=== PATIENT | female | born 1990 | race Two or more races ===

== ENCOUNTER 2020-07-14 22:33 | Inpatient (IN) ==
[2020-07-15] MEDS ORDERED: ACETAMINOPHEN 500 MG TABLET PO STA (00:26)
[2020-07-15] MEDS ORDERED: ACETAMINOPHEN 500 MG TABLET ONE (00:30)
[2020-07-15 01:12] LABS: Basophils % 0.1 % (0.0-0.8); Hematocrit 41.2 VOL% (35.7-47.0); Hemoglobin 13.4 GM/DL (12.0-16.0); Immature Granulocytes % 0.5 %; Immature Granulocytes Absolute 0.11 #; Lymphocytes # 2.1 10*3/uL (1.4-4.0); Lymphocytes % 9.3 % (21.3-54.2); Mean Corpuscular HGB Conc 32.5 GM/DL (32-36); Mean Corpuscular Volume 82.7 FL (87-102); Mean Platelet Volume 10.7 FL (9.6-12.0); Monocytes % 8.9 % (1.7-12.7); Neutrophils % 81.2 % (38.7-73.9); Platelet Count 361 T/CUMM (130-400); Red Blood Count 4.98 MC/CUMM (3.8-5.5); Red Cell Distribution Width 13.1 % (9.3-17.3)
[2020-07-15] MEDS ORDERED: SODIUM CHLORIDE 0.9% 1,000 ML IV STA (01:31)
[2020-07-15] MEDS ORDERED: KETOROLAC 30 MG/1 ML VIAL IV STA (01:31)
[2020-07-15 01:36] LABS: Albumin 3.9 G/DL (3.4-5.0); Bilirubin,Total 0.6 MG/DL (0.2-1.0); Calcium 9.7 MG/DL (8.5-10.1); Osmolality,Calculated 262.5 MOS/KG (273-304); Potassium 3.6 MMOL/L (3.5-5.1); Total Protein 9.6 G/DL (6.4-8.3)
[2020-07-15] MEDS ORDERED: KETOROLAC 30 MG/1 ML VIAL ONE (01:55)
[2020-07-15 02:49] LABS: Amorphous Crystals,Urine Occasional /HPF (Few); Bacteria,Urine Occasional /HPF (Few); Bilirubin,Urine Negative (Negative); Blood, Urine Small mg/dL (Negative); Glucose,Urine (UA) Negative (Negative); Ketones,Urine Negative (Negative); Mucus,Urine Occasional /LPF (Occasional); Nitrite,Urine Negative (Negative); Protein,Urine Negative; Squamous Epithelial Cell,Urine Occasional /HPF (0-10); Urine Appearance CLEAR (Clear); Urine Color Yellow (Yellow); Urine Specific Gravity 1.005 (1.001-1.035); Urine Urobilinogen < 2.0 EU/DL (0.2-1.0); WBC,Urine 9 /HPF (0-6)
[2020-07-15] MEDS ORDERED: cefTRIAXone 1,000 MG in SODIUM CHLORIDE 0.9% 100 ML IV STA (03:12)
[2020-07-15 04:12] LABS: Band Neutrophils 5 % (0-10); Hypochromasia 1+; Lymphocytes 11 % (20-55); Microcytosis Slight; Segmented Neutrophils 75 % (50-85); Total Cells Counted 100
[2020-07-15 04:13] LABS: Ovalocytes Slight; Platelet Estimate Normal
[2020-07-15] MEDS: SODIUM CHLORIDE 0.9% 1,000 ML IV SCH ×2 (06:04→12:32)
[2020-07-15 06:56] LABS: Basophils % 0.2 % (0.0-0.8); Eosinophils % 0.1 % (0.00-10.9); Hematocrit 33.9 VOL% (35.7-47.0); Hemoglobin 11.2 GM/DL (12.0-16.0); Immature Granulocytes % 0.5 %; Immature Granulocytes Absolute 0.09 #; Lymphocytes # 2.8 10*3/uL (1.4-4.0); Lymphocytes % 14.8 % (21.3-54.2); Mean Corpuscular Volume 82.1 FL (87-102); Mean Platelet Volume 10.3 FL (9.6-12.0); Neutrophils % 71.4 % (38.7-73.9); Platelet Count 287 T/CUMM (130-400); Red Blood Count 4.13 MC/CUMM (3.8-5.5); Red Cell Distribution Width 13.2 % (9.3-17.3); White Blood Count 19.1 T/CUMM (4-12)
[2020-07-15 07:27] LABS: Albumin 3.2 G/DL (3.4-5.0); Calcium 8.8 MG/DL (8.5-10.1); Potassium 3.8 MMOL/L (3.5-5.1)
[2020-07-15] MEDS: ENOXAPARIN 40 MG/0.4 ML SYRINGE SUBCUT SCH (08:36)
[2020-07-15] MEDS: ACETAMINOPHEN 325 MG TABLET PO PRN ×2 (08:37→15:59)
[2020-07-15] MEDS ORDERED: KETOROLAC 15 MG/1 ML VIAL IV ONE (08:51)
[2020-07-15] MEDS ORDERED: PANTOPRAZOLE 40 MG TABLET PO SCH (09:00)
[2020-07-15] MEDS: ONDANSETRON 4 MG/2 ML VIAL IV PRN (15:30)
[2020-07-15] MEDS: KETOROLAC 15 MG/1 ML VIAL IV PRN (20:41)
[2020-07-16] MEDS: ONDANSETRON 4 MG/2 ML VIAL IV PRN ×2 (00:20→08:41)
[2020-07-16] MEDS: ACETAMINOPHEN 500 MG TABLET PO PRN ×2 (00:22→23:32)
[2020-07-16] MEDS: SODIUM CHLORIDE 0.9% 1,000 ML IV SCH ×4 (00:24→18:46)
[2020-07-16] MEDS ORDERED: ZALEPLON 5 MG CAPSULE PO PRN (00:42)
[2020-07-16 08:30] LABS: Basophils % 0.1 % (0.0-0.8); Eosinophils % 0.1 % (0.00-10.9); Hematocrit 28.7 VOL% (35.7-47.0); Hemoglobin 9.3 GM/DL (12.0-16.0); Immature Granulocytes % 0.5 %; Immature Granulocytes Absolute 0.07 #; Lymphocytes # 2.9 10*3/uL (1.4-4.0); Lymphocytes % 19.8 % (21.3-54.2); Mean Corpuscular HGB Conc 32.4 GM/DL (32-36); Mean Corpuscular Volume 84.4 FL (87-102); Mean Platelet Volume 10.3 FL (9.6-12.0); Neutrophils % 67.5 % (38.7-73.9); Platelet Count 259 T/CUMM (130-400); Red Cell Distribution Width 13.5 % (9.3-17.3); White Blood Count 14.7 T/CUMM (4-12)
[2020-07-16] MEDS: KETOROLAC 15 MG/1 ML VIAL IV PRN (08:41)
[2020-07-16] MEDS: cefTRIAXone 1,000 MG in SYRINGE 1 EACH IV SCH (08:41)
[2020-07-16] MEDS: ENOXAPARIN 40 MG/0.4 ML SYRINGE SUBCUT SCH (08:41)
[2020-07-16 08:50] LABS: Hypochromasia 1+; Lymphocytes 25 % (20-55); Microcytosis 1+; Platelet Estimate Adequate; Segmented Neutrophils 67 % (50-85); Total Cells Counted 100
[2020-07-16 08:56] LABS: Calcium 8.3 MG/DL (8.5-10.1); Osmolality,Calculated 272.7 MOS/KG (273-304); Potassium 4.2 MMOL/L (3.5-5.1)
[2020-07-16] MEDS: MAGNESIUM GLUCONATE 500 MG TABLET PO SCH ×2 (11:18→20:53)
[2020-07-16] MEDS: IBUPROFEN 800 MG TABLET PO PRN (17:05)
[2020-07-17] MEDS: IBUPROFEN 800 MG TABLET PO PRN (00:55)
[2020-07-17] MEDS ORDERED: IBUPROFEN 400 MG TABLET PO PRN (01:00)
[2020-07-17] MEDS: SODIUM CHLORIDE 0.9% 1,000 ML IV SCH ×2 (02:30→12:59)
[2020-07-17 05:33] LABS: Basophils % 0.2 % (0.0-0.8); Eosinophils # 0.1 10*3/uL (0.0-0.87); Eosinophils % 0.6 % (0.00-10.9); Hematocrit 26.9 VOL% (35.7-47.0); Hemoglobin 8.9 GM/DL (12.0-16.0); Immature Granulocytes % 0.2 %; Immature Granulocytes Absolute 0.02 #; Lymphocytes # 2.5 10*3/uL (1.4-4.0); Lymphocytes % 29.6 % (21.3-54.2); Mean Corpuscular HGB Conc 33.1 GM/DL (32-36); Mean Corpuscular Volume 82.3 FL (87-102); Monocytes % 11.7 % (1.7-12.7); Neutrophils % 57.7 % (38.7-73.9); Platelet Count 261 T/CUMM (130-400); Red Blood Count 3.27 MC/CUMM (3.8-5.5); Red Cell Distribution Width 13.6 % (9.3-17.3); White Blood Count 8.3 T/CUMM (4-12)
[2020-07-17 05:57] LABS: Eosinophils 1 % (0-10); Hypochromasia 1+; Lymphocytes 32 % (20-55); Microcytosis 1+; Platelet Estimate Adequate; Segmented Neutrophils 59 % (50-85); Total Cells Counted 100
[2020-07-17 05:59] LABS: Calcium 8.1 MG/DL (8.5-10.1); Osmolality,Calculated 276.4 MOS/KG (273-304); Potassium 3.8 MMOL/L (3.5-5.1)
[2020-07-17 07:41] VITALS: BP 111/58
[2020-07-17] MEDS: cefTRIAXone 1,000 MG in SYRINGE 1 EACH IV SCH (08:46)
[2020-07-17] MEDS: MAGNESIUM GLUCONATE 500 MG TABLET PO SCH (08:46)
[2020-07-17] MEDS: ENOXAPARIN 40 MG/0.4 ML SYRINGE SUBCUT SCH (08:46)
== END 2020-07-17 13:31 | disposition home or self-care (01) | DRG 690 ==
LOC: N.ED 22:33 → N.EDINP 07-15 03:50 → N.5E 07-15 06:01
PROVIDERS: ADMIT Internal Medicine; ATTEND Internal Medicine